=== PATIENT | male | born 1980 | race Caucasian/White ===

== ENCOUNTER 2020-01-11 11:14 | Outpatient (REF) | payer OTHER, SELFPAY ==
[2020-01-11 14:30] LABS: Hematocrit 41.2 % (42-52); Hemoglobin 13.7 g/dl (14.0-18.0); Mean Corpuscular HGB Conc 33.3 g/dl (31.0-36.0); Mean Corpuscular Hemoglobin 27.7 pg (27.0-33.0); Mean Corpuscular Volume 83.4 fL (80-98); Mean Platelet Volume 9.9 fL (9.4-12.4); Platelet Count 215 X10*3/uL (160-400); Red Blood Count 4.94 X10*6/uL (4.60-5.80); Red Cell Distribution Width 12.8 % (11.0-16.0); White Blood Count 6.3 X10*3/uL (4.8-10.8)
[2020-01-11 15:12] LABS: Alanine Aminotransferase 30 U/L (0-40); Albumin Level 4.4 g/dL (3.5-5.0); Alkaline Phosphatase 84 U/L (39-117); Anion Gap 13 (12-20); Aspartate Amino Transferase 20 U/L (5-37); Bilirubin Direct 0.2 mg/dL (0.0-0.5); Bilirubin Total 0.3 mg/dL (0.0-1.0); Blood Urea Nitrogen 14 mg/dL (9-16); Calcium 8.7 mg/dL (8.4-10.2); Carbon Dioxide 28 mmol/L (22-29); Chloride 103 mmol/L (96-108); Cholesterol 169 mg/dL; Estimated Glomerular Filt Rate > 60; Glucose Fasting 104 mg/dL (60-99); Glucose Urine UA NEG (NEG); HDL Cholesterol 33 mg/dL; LDL Cholesterol Calculated 86 mg/dl; Leukocyte Esterase Urine NEG (NEG); Nitrite Urine NEG (NEG); PH 5.5 (5.0-8.0); Potassium 4.6 mmol/l (3.3-5.1); Sodium 139 mmol/L (135-145); Specific Gravity - Urine >= 1.030 (1.005-1.025); Total Protein 7.3 g/dL (6.5-8.0); Triglycerides 251 mg/dL; Urine Blood NEG (NEG); Urine Ketones NEG (NEG); Urine Protein NEG (NEG-TRACE)
[2020-01-11 15:14] LABS: Appearance Urine CLEAR; Color Urine YELLOW
[2020-01-11 15:33] LABS: TSH reflex Free T4 0.52 mIU/mL (0.32-4.0)
== END 2020-01-11 11:15 | disposition home or self-care (01) ==
LOC: HO.10HDL 11:14
PROVIDERS: Visit Provider Hospitalist
DX: Z00.00 Encounter for general adult medical examination without abnormal findings (principal)
CPT/HCPCS: 36415; 80048; 80061; 80076; 81003; 84443; 85027

== ENCOUNTER 2022-12-06 08:40 | Outpatient (REF) | payer OTHER, SELFPAY ==
[2022-12-06 12:44] LABS: Alanine Aminotransferase 26 U/L (0-40); Albumin Level 4.5 g/dL (3.5-5.0); Alkaline Phosphatase 89 U/L (39-117); Anion Gap 13 (12-20); Aspartate Amino Transferase 17 U/L (5-37); Bilirubin Total 0.5 mg/dL (0.0-1.0); Blood Urea Nitrogen 10 mg/dL (9-16); Carbon Dioxide 27 mmol/L (22-29); Chloride 103 mmol/L (96-108); Cholesterol 196 mg/dL (<200); Estimated Glomerular Filt Rate > 60; Glucose Random 107 mg/dL (60-115); HDL Cholesterol 38 mg/dL (>40); LDL Cholesterol Calculated 127 mg/dL (<100); Potassium 4.3 mmol/L (3.3-5.1); Sodium 139 mmol/L (135-145); Total Protein 7.7 g/dL (6.5-8.0); Triglycerides 156 mg/dL (<150)
== END 2022-12-06 08:41 | disposition home or self-care (01) ==
LOC: HO.HHCL 08:40
PROVIDERS: Visit Provider Nurse Practitioner Family
DX: Z00.00 Encounter for general adult medical examination without abnormal findings (principal); N23 Unspecified renal colic
CPT/HCPCS: 36415; 80053; 80061; 87086

== ENCOUNTER 2022-12-23 10:14 | Outpatient (REF) | payer OTHER, SELFPAY ==
--- NOTE | ~2022-12-23 | XR_ITS ---
EXAMINATION: XR LUMBOSACRAL SPINE CLINICAL INFORMATION: Acute left-sided low back pain without sciatica. COMPARISON: None available. TECHNIQUE: Three views of the lumbosacral spine. FINDINGS: There is mild straightening of lumbar lordosis. The vertebral heights, alignment and disc heights are normal. No visible acute fracture, dislocation or subluxation seen. No lytic or sclerotic process seen. The paravertebral soft tissues are normal. XR/XR lumbar spine 2-3V IMPRESSION: Mild straightening of lumbar lordosis likely spasm. No visible acute fracture, dislocation or lytic process seen.
== END 2022-12-23 10:15 | disposition home or self-care (01) ==
LOC: HO.HHCX 10:14
PROVIDERS: Visit Provider Family Medicine
DX: M54.50 Low back pain, unspecified (principal)
CPT/HCPCS: 72100

== ENCOUNTER 2023-10-31 09:47 | Outpatient (REF) | payer OTHER, SELFPAY ==
[2023-10-31 12:41] LABS: Cholesterol 161 mg/dL (<200); HDL Cholesterol 31 mg/dL (>40); LDL Cholesterol Calculated 105 mg/dL (<100); Triglycerides 126 mg/dL (<150)
== END 2023-10-31 09:48 | disposition home or self-care (01) ==
LOC: HO.HHCL 09:47
PROVIDERS: Visit Provider Nurse Practitioner Family
DX: E78.2 Mixed hyperlipidemia (principal)
CPT/HCPCS: 36415; 80061

== ENCOUNTER 2024-05-28 09:16 | Outpatient (REF) | payer OTHER, SELFPAY ==
[2024-05-28 11:52] LABS: MANUAL DIFF FLAG NO
[2024-05-28 11:59] LABS: Basophils Percent Auto 0.4 % (0-2); Eosinophils Absolute Auto 0.1 X10*3/uL (0.0-0.4); Eosinophils Percent Auto 0.7 % (0-4); Hematocrit 42.3 % (42.0-52.0); Hemoglobin 14.2 g/dl (14.0-18.0); Imm Gran Abs Auto 0.02 X10*3/uL (0.00-0.03); Imm Gran Pct Auto 0.3 % (0.0-0.4); Lymphocytes Absolute Auto 2.3 X10*3/uL (1.2-4.9); Lymphocytes Percent Auto 33.4 % (20-40); Mean Corpuscular HGB Conc 33.6 g/dl (31.0-36.0); Mean Corpuscular Hemoglobin 28.4 pg (27.0-33.0); Mean Corpuscular Volume 84.6 fL (80.0-98.0); Mean Platelet Volume 9.9 fL (9.4-12.4); Monocytes Absolute Auto 0.4 X10*3/uL (0.1-1.2); Monocytes Percent Auto 5.8 % (2-11); Neutrophils Absolute Auto 4.1 x10*3/uL (2.0-8.3); Neutrophils Percent Auto 59.4 % (45-73); Platelet Count 241 X10*3/uL (160-400); Red Cell Distribution Width 12.9 % (11.0-16.0); White Blood Count 6.9 X10*3/uL (4.8-10.8)
[2024-05-28 12:30] LABS: Alanine Aminotransferase 42 U/L (0-40); Albumin Level 4.4 g/dL (3.5-5.0); Alkaline Phosphatase 81 U/L (39-117); Anion Gap 13 (12-20); Aspartate Amino Transferase 22 U/L (5-37); Bilirubin Total 0.4 mg/dL (0.0-1.0); Blood Urea Nitrogen 12 mg/dL (9-16); Calcium 9.5 mg/dL (8.4-10.2); Carbon Dioxide 25 mmol/L (22-29); Chloride 108 mmol/L (96-108); Estimated Glomerular Filt Rate > 60; Glucose Random 112 mg/dL (60-115); Potassium 4.5 mmol/L (3.3-5.1); Sodium 141 mmol/L (135-145); Total Protein 7.5 g/dL (6.5-8.0)
== END 2024-05-28 09:17 | disposition home or self-care (01) ==
LOC: HO.HHCL 09:16
PROVIDERS: Visit Provider Internal Medicine Geriatric Medicine
DX: K21.9 Gastro-esophageal reflux disease without esophagitis (principal); R68.82 Decreased libido
CPT/HCPCS: 36415; 80053; 84403; 85025

== ENCOUNTER 2024-07-04 16:19 | Outpatient (REF) | payer OTHER, SELFPAY ==
--- NOTE | ~2024-07-04 | US_ITS ---
EXAMINATION: US SCROTUM HISTORY: left scrotal mass. COMPARISON: There are no prior studies for comparison. FINDINGS: Real-time grayscale ultrasound imaging of the scrotum was performed. RIGHT TESTICLE: The right testis is surgically absent. LEFT TESTICLE: The left testis measures 4.6 x 2.4 x 2.8 cm and demonstrates normal homogeneous echotexture. There is a 3 mm hypoechoic focus within the testis which may represent a cyst, but is too small to accurately characterize. A 1 mm calcification is noted. The left testis demonstrates normal color Doppler flow. LEFT EPIDIDYMIS: Normal in size, shape, and vascularity. There is a 1.1 x 1.0 x 1.3 cm epididymal head cyst. VARICOCELE: None. HYDROCELE: No significant hydrocele is seen. OTHER COMMENTS: None. US/US scrotum IMPRESSION: 1. Status post right orchiectomy. 2. 3 mm hypoechoic focus in the left testis which may represent a cyst, but is too small to accurately characterize. Comparison with prior outside studies is recommended. If there are no prior outside studies available for comparison, follow-up is recommended. 3. 1.3 cm left epididymal head cyst. Electronically signed by: William Byers MD 07/05/2024 07:44 AM EDT
--- OUTSIDE RECORDS SUMMARY | 2024-07-04 16:47 | XMS_ITS | Encounter Summary ---
Author Organization [employer] Address [address] [place] [address] 7 [place] [address] Care Team Providers Care Manager Philosophy Name Role Phone Keyla Covington Primary Care Provider [phone] NameMarlon MD Primary Care Provider [phone] Encounter Details Date Type Department Care Team ([facility] st Contact Info) Description 01/07/2023 Abstract [facility] [address] [place], [place] [phone] Keyla Covington FNP [address] [place] [address] Social History Tobacco Use Types Packs/Day Years Used Date Smoking Tobacco: Every Day Cigarettes 1.5 25 Passive Smoke Exposure: Never Smokeless Tobacco: Never Alcohol Use Standard Drinks/Week Comments Never 0 (1 standard drink = 0.6 oz pur e alcohol) Depression Answer Date Recorded Patient Health Questionnaire-9 Score 0 12/03/2022 Housing Stability Answer Date Recorded What is your housing situation today? I have robinson mueller 12/21/[address] you li ve. Do you have problems with any of the following? None of the above 12/21/2022 Food Insecurity Answer Date Recorded Within the past 12 months, y ou worried that your food would run out before you got money to buy more: Never True 12/21/2022 Within the past 12 months,th e food you bought just didn't last and you didn't have enough money to get more: Never True Transportation Answer Date Recorded In the past 12 months, has l ack of transportation kept you from medical appts, meetings, work or from getting things needed for daily living? No 12/21/2022 Utilities Answer Date Recorded In the past 12 months, has t he electric, gas, oil or water company threatened to shut off services in your home? No 12/21/2022 Depression Answer Date Recorded Patient Health Questionnaire-2 Score 0 12/03/2022 Sex and Gender Information Value Date Recorded Sex Assigned at Male 01/04/2022 10:20 AM EDT Legal Sex Male 10:20 AM EDT Gender Identity Male 05/24/2022 3:22 PM EDT Sexual Orientation Straight 01/04/2022 10 :20 AM EDT documented as of this encounter Plan of Treatment Upcoming Encounters Date Type Department Care Team (Late st Contact Info) Description 07/27/2024 9:00 AM EDT Telemedicine [facility] [address] [place] [address] NameMarlon MD [address] [place] [phone] 09/10/2024 3:15 PM EDT Office Visit [facility] [address] [place] [address] NameMarlon MD [address] [place] [phone] documented as of this encounter Visit Diagnoses Not on filedocumented in this encounter Additional Health Concerns Assessment Noted Time PHQ-9 Depression Total Score: 0 12/04/19 2:34 PM EDT documented as of this encounter Care Teams Manager Philosophy Relationship Specialty Start Date End Date Keyla Covington FNP [address] [place] [phone] PCP - General Family Medicine 12/11/21 11/08/23 NameMarlon MD [address] [place] [phone] PCP - General Internal Medicine 11/09/23 documented as of this encounter
--- OUTSIDE RECORDS SUMMARY | 2024-07-04 16:47 | XMS_ITS | Clinical Summary ---
Author Organization [employer] Address [address] [place] [address] 7t [place] [address] Care Team Providers Care Tin Plater Name Role Phone Name, Marlon BINGHAM Primary Care Provider [phone] Allergies No known active allergies Medications methadone (Methadose) 40 MG dispersible tablet Take 1 tablet by mouth at bed time. Active naloxone (Narcan) 4 mg/0.1 mL nasal spray Administer 0.1 mL into affected nostril(s). 2 Active baclofen (Lioresal) 10 MG tablet Take 1 tablet (10 mg) by mouth if needed in the morning, at noon, and at bedtime for muscle spasms. 60 tablet 1 3 Active Diclofenac Sodium 1 % gel Apply 2 g topically if needed in the morning, at noon, in the evening, and at bedtime (pain). 150 g 3 3 Active lidocaine (Lidoderm) 5 % patch Apply 1 patch topically if needed each day for mild pain. Remove & discard patch within 12 hours or as directed by . 30 patch 1 3 Active albuterol 108 (90 Base) MCG/ACT inhalerIndicatio ns:Subacute cough Inhale 2 puffs every 6 (six) hours if needed for wheezing. 18 g 11 4 12/20/19 25 Active pantoprazole (Protonix) 40 MG EC tabletIndication s:Gastroesophage al reflux disease, unspecified whether esophagitis present Take 1 tablet (40 mg) by mouth before breakfast. Do not crush, chew, or split. 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 Opioid dependence 12/23/2022 12/23/2022 Encounters Date Type Department Care Team Description 06/04/2024 Telephone [facility] [address] [place] [phone] Marlon Noyola MD Results 05/21/2024 3:45 PM EDT Office Visit [facility] [address] [place] [phone] Marlon Noyola MD Scrotal mass (Primary Dx); Low libido; Gastroesophageal reflux disease, unspecified whether esophagitis present 05/21/2024 Travel 04/10/2024 Telephone [facility] [address] [place] [phone] Bren Melendez [place] PCP OUT 04/20 from Last 3 Months Immunizations Name Administration Dates Next Due Pfizer Covid-19 Vaccine 12+ 01/14/2023 Family History Medical History Relation Name Comments Diabetes type II Father Hypertension Father Kidney failure Father Colon cancer Father's Brother Hypertension Mother Relation Name Status Comments Father Father's Brother Alive Mother Social History Tobacco Use Types Packs/Day Years Used Date Smoking Tobacco: Every Day Cigarettes 1.5 25 Passive Smoke Exposure: Never Smokeless Tobacco: Never Tobacco Cessation:Ready to Q uit: Not Asked; Counseling Given: Not Answered Alcohol Use Standard Drinks/Week Comments Never 0 (1 standard drink = 0.6 oz pur e alcohol) Depression Answer Date Recorded Patient Health Questionnaire-9 Score 6 12/20/2023 Patient Health Questionnaire-9 Score 6 12/20/2023 Last PHQ-9: Questionnaire Data Not on file 1 Housing Stability Answer Date Recorded What is [...] Answer Date Recorded Patient Health Questionnaire-2 Score 2 12/20/2023 Sex and Gender Information Value Date Recorded Sex Assigned at Male 01/04/2022 10:20 AM EDT Legal Sex Male 10:20 AM EDT Gender Identity Male 05/24/2022 3:22 PM EDT Sexual Orientation Straight 01/04/2022 10 :20 AM EDT Last Filed Vital Signs Vital Sign Reading Time Taken Comments Blood Pressure 151/82 05/21/2024 3:53 PM EDT Pulse 73 05/21/2024 3:53 PM EDT Temperature 36.5 ??C (97.7 ??F) 05/21/2024 3:53 PM ED T Respiratory Rate 18 05/21/2024 3:53 PM EDT Oxygen Saturation 98% 05/21/2024 3:53 PM EDT Inhaled Oxygen Concentration - - Weight 92.5 kg (204 lb) 05/21/2024 3:53 PM EDT Height 175.3 cm (5' 9 ) 05/21/2024 3:53 PM EDT Body Mass Index 30.13 05/21/2024 3:53 PM EDT Plan of Treatment Upcoming Encounters Date Type Department Care Team (Late st Contact Info) Description 07/27/2024 9:00 AM EDT Telemedicine [facility] [address] [place] [address] Name, MD Marlon [address] [place] [phone] 09/10/2024 3:15 PM EDT Office Visit [facility] [address] [place] [phone] Name, MD Marlon [address] [place] [phone] Health Maintenance Due Date Last Done Comments CT Colonography 1979 Colonoscopy 1979 Colorectal Cancer Screening 1979 Dental X-Ray: Full Mouth 1979 FIT DNA/Cologuard 1979 FIT 1979 FOBT 1979 Sigmoidoscopy 1979 Alcohol/Substance Use Screening 1991 Family Planning (PISQ) 06/13/1994 DTaP/Tdap/Td Vaccines (1 - Tdap) 06/13/1998 Hepatitis B Vaccines (1 of 3 - 19+ 3-dose series) 06/13/1998 Pneumococcal Vaccine: Pediatrics (0 to 5 Years) and At-Risk Patients (6 to 49) Years) (1 of 2 - PCV) 06/13/1998 Dental Oral Exam 11/25/2022 05/24/2022 Dental Prophylaxis 11/25/2022 05/24/2022 COVID-19 Vaccine (2 - 2023-2 5 season) 2023 01/14/2023 Influenza Vaccine (#1) 2023 SDOH Screening 12/04/2023 12/03/2022 Dental X-Ray: Bitewings 02/03/2024 02/02/20 23, 05/24/2022 Depression Screening 12/19/2024 12/20/2023, 12/20/2023 Tobacco Screening 05/21/2025 05/21/2024 Lipid Panel 10/30/2028 10/31/2023, 12/06/2022 Zoster Vaccines (1 of 2) 06/13/2029 RSV Patients and Patients Aged 60 years or older (1 - 1-dose 75+ series) 06/13/2054 HIV Screening Completed 12/11/2021 Hepatitis C Screening Completed 12/11/2021 HIB Vaccines Aged Out No longer eligi ble based on patient's age to complete this topic HPV Vaccines Aged Out No longer eligi ble based on patient's age to complete this topic Hepatitis A Vaccines Aged Out No long er eligible based on patient's age to complete this topic IPV Vaccines Aged Out No longer eligi ble based on patient's age to complete this topic Meningococcal Vaccine Aged Out No [place] eligible based on patient's age to complete this topic RSV under 20 months Aged Out No longe r eligible based on patient's age to complete this topic Rotavirus Vaccines Aged Out No longer eligible based on patient's age to complete this topic Procedures Procedure Name Priority Date/Time Associated Diagnosis Comments TESTOSTERONE, TOTAL, MALES (ADULT), [place] Routine 05/28/2024 9:18 AM EDT Low libido COMPREHENSIVE METABOLIC PANEL Routine 05/28/2024 9:18 AM EDT Gastroesophageal reflux disease, unspecified whether esophagitis present CBC WITH AUTO DIFFERENTIAL Routine 05/28/2024 9:18 AM EDT Gastroesophageal reflux disease, unspecified whether esophagitis present LIPID PANEL, STANDARD Routine 10/31/2023 9:50 AM EDT Mixed hyperlipidemia BITEWING - SINGLE RADIOGRAPHIC IMAGE Routine 02/01/2023 11:30 AM EST PROPHYLAXIS - ADULT Routine 05/24/2022 3 :00 PM EDT PERIODIC ORAL EVALUATION - ESTABLISHED PATIENT Routine 05/24/2022 1:30 PM EDT ZZZ HISTORICAL HEPATITIS C AB W/REFL TO HCV RNA, QN, PCR Routine 12/11/2021 2:55 PM EDT HIV 1/2 ANTIGEN/ANTIBODY, FOURTH GENERATION W/RFL Routine 12/11/2021 2:55 PM EDT from Last 3 Months or Most Recently Relevant to Health Maintenance Results * CBC auto differential (05/28/2024 9:18 AM EDT) White Blood Count 6.9 4.8 - 10.8 X10*3/uL [facility] Red Blood Count 5.00 4.60 - 5.80 X10*6/uL [facility] Hemoglobin 14.2 14.0 - 18.0 g/dl [facility] Hematocrit 42.3 42.0 - 52.0 % [facility] Mean Corpuscular Volume 84.6 80.0 - 98.0 fL [facility] Mean Corpuscular Hemoglobin 28.4 27.0 - 33.0 pg [facility] Mean Corpuscular HGB Conc 33.6 31.0 - 36.0 g/dl [facility] Red Cell Distribution Width 12.9 11.0 - 16.0 % [facility] Platelet Count 241 160 - 400 X10*3/uL [facility] Mean Platelet Volume 9.9 9.4 - 12.4 fL [facility] Neutrophils Percent Auto 59.4 45 - 73 % [facility] Imm Gran Pct Auto 0.3 0.0 - 0.4 % [facility] Lymphocytes Percent Auto 33.4 20 - 40 % [facility] Monocytes Percent Auto 5.8 2 - 11 % [facility] Eosinophils Percent Auto 0.7 0 - 4 % [facility] Basophils Percent Auto 0.4 0 - 2 % [facility] NRBC Pct Auto 0.0 0.0 - 0.2 /100WBC [facility] Neutrophils Absolute Auto 4.1 2.0 - 8.3 x10*3/uL [facility] Imm Gran Abs Auto 0.02 0.00 - 0.03 X10*3/uL [facility] Lymphocytes Absolute Auto 2.3 1.2 - 4.9 X10*3/uL [facility] Monocytes Absolute Auto 0.4 0.1 - 1.2 X10*3/uL [facility] Eosinophils Absolute Auto 0.1 0.0 - 0.4 X10*3/uL [facility] Basophils Absolute Auto 0.0 0.0 - 0.2 X10*3/uL [facility] NRBC Abs Auto 0.000 0.0 - 0.012 X10*3/uL [facility] Blood Venous blood specimen / Unknown 05/28/2024 9:18 AM EDT 05/28/2024 11:49 AM EDT us Marlon Noyola MD LAB BLOOD ORDERABLES Final Resul t [facility] [address] [place] [address] [phone] * (ABNORMAL) Testosterone, Total, males (Adult), IA (05/28/2024 9:18 AM EDT) Pathologist [facility] Testosterone, Total 217(A) 250 - 1100 ng/dL [facility] Comment:For additional infor francisco, please refer tohttp://education.[employer]/faq/NwmlsPffsdpgmvmzkHBBVZLZMG185(This link is being provided for informational/educational purposes only.)This test was developed and its analytical performancecharacteristics have been determined by [employer] [place], [place]. It hasnot been cleared or approved by the U.S. Food and DrugAdministration. This assay has been validated pursuantto the CLIA regulations and is used for clinicalpurposes.THIS TEST WAS PERFORMED AT:[employer] [id number] [place] [address]IONLQIIKEYLA BLACK MD,PHD Blood Venous blood specimen / Unknown 05/28/2024 9:18 AM EDT 05/28/2024 11:49 AM EDT us Marlon Name LAB BLOOD ORDERABLES Final Resul t [facility] [address] [place] [phone] * (ABNORMAL) Comprehensive Metabolic Panel (05/28/2024 9:18 AM EDT) [facility] Sodium 141 135 - 145 mmol/L [facility] Potassium 4.5 3.3 - 5.1 mmol/L [facility] Chloride 108 96 - 108 mmol/L [facility] Carbon Dioxide 25 22 - 29 mmol/L [facility] Anion Gap 13 12 - 20 [facility] Urea Nitrogen (BUN) 12 9 - 16 mg/dL [facility] Creatinine, Serum 0.85 0.5 - 1.4 mg/dL [facility] Estimated Glomerular Filt Rate >60 [facility] Comment:Chronic Kidney Disea se: Estimated GFR < 60 mL/min/1.12g1Ifonry Kidney Disease: Estimated GFR < 15 mL/min/1.73m2 Glucose 112 60 - 115 mg/dL [facility] Calcium 9.5 8.4 - 10.2 mg/dL [facility] Bilirubin, Total 0.4 0.0 - 1.0 mg/dL [facility] Aspartate Amino Transferase 22 5 - 37 U/L [facility] Alanine Aminotransferase 42(H) 0 - 40 U/L [facility] Total Protein 7.5 6.5 - 8.0 g/dL [facility] Albumin Level 4.4 3.5 - 5.0 g/dL [facility] Alkaline Phosphatase 81 39 - 117 U/L [facility] Blood Venous blood specimen / Unknown 05/28/2024 9:18 AM EDT 05/28/2024 11:49 AM EDT us Marlon Name MD LAB BLOOD ORDERABLES Final Resul t [facility] [address] [place] [phone] * (ABNORMAL) Lipid Panel, Standard (10/31/2023 9:50 AM EDT) Triglycerides 126 <150 mg/dL [facility] Comment:Desirable Triglyceri de: less than 150 mg/dLBorderline High Triglyceride 150-199 mg/dLHigh Triglyceride: 200-499 mg/dLVery High Triglyceride: greater than or equal to 5OO mg/dL Cholesterol 161 <200 mg/dL [facility] Comment:Desirable Cholestero l: less than 200 mg/dLBorderline High Cholesterol: 200-239 mg/dLHigh Cholesterol: greater than 239 mg/dL LDL Cholesterol Calculated 105(H) <100 mg/dL [facility] Comment:Desirable LDL: less than 100 mg/dLNear Optimal/Above Optimal LDL: 110- 129 mg/dLBorderline High LDL: 130-159 mg/dLHigh LDL: 160-189 mg/dLVery High LDL: greater than or equal to 190 mg/dL HDL Cholesterol 31(L) >40 mg/dL [facility] Comment:Desirable HDL: great er than 40 mg/dL Note: This HDL assay may give artificially low results in patients with liver disease. Blood Venous blood specimen / Unknown 10/31/2023 9:50 AM EDT 10/31/2023 11:52 AM EDT Keyla Covington HEALTH ADMINISTRATION TEACHER LAB BLOOD ORDERABLES Final Resu lt [facility] [address] [place] [address] [phone] * HEPATITIS C AB W/REFL TO HCV RNA, QN, PCR (12/11/2021 2:55 PM EDT) HEPATITIS C ANTIBODY NON-REACTI VE NON-REACT [facility]US [facility] INDEX 0.08 <1.00 [facility] Comment: ?? HCV antibody was non-reactive. There is no laboratory ?? evidence of HCV infection. ?? In most cases, no further action is required. However, if recent HCV exposure is suspected, a test for HCV RNA (test code 07558) is suggested. ?? For additional information please refer to http://education.Ceram Hyd/faq/OJR37s1 (This link is being provided for informational/ educational purposes only.) ?? 12/11/2021 2:55 PM EDT Marlon Noyola MD HISTORICAL/NON ORDERABLE LABS Fi nal Result [facility] * HIV 1/2 ANTIGEN/ANTIBODY,FOURTH GENERATION W/RFL (12/11/2021 2:55 PM EDT) HIV-1/2 ANTIGEN AND ANTIBODIES, 4TH GENERATION W/ REFLEX NON-REACT LA[facility]ARUS NON-REACT [facility]US [facility] Comment: HIV-1 antigen and HIV-1/HIV-2 antibodies were not detected. There is no laboratory evidence of HIV infection. ?? PLEASE NOTE: This information has been disclosed to you from records whose confidentiality may be protected by state law. ??If your state requires such protection, then the state law prohibits you from making any further disclosure of the information without the specific written consent of the person to whom it pertains, or as otherwise permitted by law. A general authorization for the release of medical or other information is NOT sufficient for this purpose. ? For additional information please refer to http://education.Ceram Hyd/faq/IHL912 (This link is being provided for informational/ educational purposes only.) ? The performance of this assay has not been clinically validated in patients less than 2 years old. ?? 12/11/2021 2:55 PM EDT us Marlon Noyola MD LAB BLOOD ORDERABLES Final Resul t [facility] from Last 3 Months or Most Recently Relevant to Health Maintenance Insurance DENTAL - HSN PARTIAL (MEDICAID) Care Teams Tin Plater Relationship Specialty Start Date End Date Name, MD Marlon [address] [place] [phone] PCP - General Internal Medicine 11/09/23
--- OUTSIDE RECORDS SUMMARY | 2024-07-04 16:47 | XMS_ITS | Encounter Summary ---
Author Organization [employer] Address [address] [place] [address] 7 [place] [address] Care Team Providers Care Chest Painting And Sealing Supervisor Name Role Phone Keyla Covington Primary Care Provider [phone] Name, Marlon BINGHAM Primary Care Provider [phone] Reason for Visit * Reason Onset Date Comments Appointment 07/15/2022 Encounter Details Date Type Department Care Team (Late st Contact Info) Description 07/15/2022 Telephone [facility] [address], [place] [phone] Sidney Byrnes DDS [address], [place] [phone] Appointment Social History Tobacco Use Types Packs/Day Years Used Date Smoking Tobacco: Every Day Cigarettes 1.5 20 Passive Smoke Exposure: Never Smokeless Tobacco: Never Alcohol Use Standard Drinks/Week Comments Never 0 (1 standard drink = 0.6 oz pur e alcohol) Sex and Gender Information Value Date Recorded Sex Assigned at Male 01/04/2022 10:20 AM EDT Legal Sex Male 10:20 AM EDT Gender Identity Male 05/24/2022 3:22 PM EDT Sexual Orientation Straight 01/04/2022 10 :20 AM EDT COVID-19 Exposure Response Date Recorded In the last 10 days, have yo u been in contact with someone who was confirmed or suspected to have Coronavirus/COVID-19? No / Unsure 07/15/2022 7:48 AM EDT documented as of this encounter Miscellaneous Notes * Telephone Encounter - Tamara Iyer - 07/15/2022 9:37 AM EDT Pk [place]o 1980 Patient would like medication sent to [facility] at [address] [place] [phone] in [place] documented in this encounter Plan of Treatment Upcoming Encounters Date Type Department Care Team (Late st Contact Info) Description 07/27/2024 9:00 AM EDT Telemedicine [facility] MED[facility] [address] [place] [phone] Name, MD Marlon [address] [place] [phone] 09/10/2024 3:15 PM EDT Office Visit [facility] [address] [place] [phone] Name, MD Marlon [address] [place] [phone] documented as of this encounter Visit Diagnoses Not on filedocumented in this encounter Care Teams Chest Painting And Sealing Supervisor Relationship Specialty Start Date End Date Keyla Covington FNP [address] [place] [address] [phone] PCP - General Family Medicine 12/11/21 11/08/23 NameMarlon MD [address] [place] [address] [phone] PCP - General Internal Medicine 11/09/23 documented as of this encounter
--- OUTSIDE RECORDS SUMMARY | 2024-07-04 16:47 | XMS_ITS | Encounter Summary ---
Author Organization [employer] Address [address] [place] [phone] Care Team Providers Care Adjunct Trainer Name Role Phone JenPippa whitejun DELUNA Primary Care Provider [phone] Marlon Noyola MD Primary Care Provider [phone] Encounter Details Date Type Department Care Team (Latest Contact Info) Description 06/12/2020 Abstract [facility] CONVERSIONS Dental, Provider, DDS Social History Tobacco Use Types Packs/Day Years Used Date Smoking Tobacco: Never Assessed Sex and Gender Information Value Date Recorded Sex Assigned at Male 01/04/2022 10:20 AM EDT Legal Sex Male 10:20 AM EDT Gender Identity Male 05/24/2022 3:22 PM EDT Sexual Orientation Straight 01/04/2022 10 :20 AM EDT documented as of this encounter Plan of Treatment Upcoming Encounters Date Type Department Care Team ( st Contact Info) Description 07/27/2024 9:00 AM EDT Telemedicine [facility] MEDICINE [address] [place] [address] [phone] Marlon Noyola MD [address] [place] [phone] 09/10/2024 3:15 PM EDT Office Visit [facility] [address] [place] [address] [phone] Marlon Noyola MD [address] [place] [phone] documented as of this encounter Visit Diagnoses Not on filedocumented in this encounter Care Teams Adjunct Trainer Relationship Specialty Start Date End Date Keyla Covington FNP [address] [place] [address] PCP - General Family Medicine 12/11/21 11/08/23 Name, MD Marlon [address] [place] [address] PCP - General Internal Medicine 11/09/23 documented as of this encounter
== END 2024-07-04 16:20 | disposition home or self-care (01) ==
LOC: HO.US 16:19
PROVIDERS: PCP Internal Medicine Geriatric Medicine; Visit Provider Internal Medicine Geriatric Medicine
DX: N50.89 Other specified disorders of the male genital organs (principal)
CPT/HCPCS: 76870

== ENCOUNTER → 2024-07-04 16:26 | Outpatient (BNV) | payer OTHER, SELFPAY | PROVIDERS: PCP Internal Medicine Geriatric Medicine; Visit Provider Radiology Diagnostic Radiology | DX: N50.89 Other specified disorders of the male genital organs (principal) | CPT/HCPCS: 76870; 93976 ==

== ENCOUNTER 2024-08-09 07:41 | Outpatient (AMB) | payer OTHER, SELFPAY ==
--- OUTSIDE RECORDS SUMMARY | 2024-08-09 07:44 | XMS_ITS | Encounter Summary ---
Author Organization [facility] Address [address] [place] [address] 7 [place] [address] Care Team Providers Care Compensation Expert Name Role Phone Keyla Covington Primary Care Provider [phone] Marlon Noyola MD Primary Care Provider [phone] Reason for Visit * Reason Onset Date Comments Appointment 07/15/2022 Encounter Details Date Type Department Care Team (Late st Contact Info) Description 07/15/2022 Telephone [facility] ADULT DENTAL [address] [place], [place] [phone] Sidney Byrnes DDS [address] [place], [place] [phone] Appointment Social History Tobacco Use Types Packs/Day [...] 1980 Patient would like medication sent to [facility] at [address] [place] [address] in [place] documented in this encounter Plan of Treatment Upcoming Encounters Date Type Department Care Team (Late st Contact Info) Description 09/10/2024 3:15 PM EDT Office Visit [facility] MEDICINE [address] [place] [address] Marlon Noyola MD [address] [place] [address] documented as of this encounter Visit Diagnoses Not on filedocumented in this encounter Care Teams Compensation Expert Relationship Specialty Start Date End Date Keyla Covington FNP [address] [place] [address] PCP - General Family Medicine 12/11/21 11/08/23 Marlon Noyola MD [address] [place] [address] PCP - General Internal Medicine 11/09/23 documented as of this encounter
--- NOTE | 2024-08-09 08:19 | MHC.OFFVIS ---
Intake Visit Reasons: low testosterone Intake Note: New patient presents today for initial visit for low testosterone Urology Medication:None Blood Thinner:None Antibiotic Allergies:None Slip Bridge Operator Required: Yes Slip Bridge Operator Name: [id number] Information Interpreted: non-clinical & clinical Allergies No Known Allergies [No Known Allergies*] Allergy (Verified 08/09/24 08:21) Medication List - Last Reconciled 08/09/24 by Johnson Woodruff MD ibuprofen 800 mg PO TID PRN 30 days methadone 70 mg PO DAILY polyethylene glycol 3350 (Miralax) 17 grams PO BID 1 month HPI Comments Details: 08/09/24--History of Present Illness The patient is a 44-year-old male presenting with concerns regarding low testosterone levels. These were initially identified in May during routine blood work while he was on methadone therapy. He attributes the low testosterone levels to the methadone, indicating that he has no history of hypogonadism prior to the initiation of this treatment. The patient does not report any symptomatic complaints such as fatigue or diminished libido, which can be symptomatic of low testosterone. He experiences no difficulty with erections or any specific sexual activity concerns beyond a mild concern due to the low testosterone finding. There is a noted absence of family history concerning for prostate malignancy, which is relevant as we consider potential testosterone replacement therapy. Urinary Symptoms Review - No urinary symptoms were reported. - Absence of urinary incontinence. Results - Labs: Low testosterone level identified in May. Discussion Notes I discussed with the patient the implications of low testosterone levels, likely secondary to methadone therapy. We explored the potential management options, including the use of a medication called Cialis, which can help improve testosterone levels and assist with erectile function. The patient understood the relationship between testosterone and prostate health, especially considering the absence of prostate cancer in his family history. I communicated that Cialis might offer both benefits through a possible increase in testosterone and management of potential symptoms, though the therapy is primarily intended for erectile dysfunction. We agreed on a trial of daily Cialis 5 mg, with the understanding dosing might not be covered by insurance. We discussed the importance of follow-up testing in four months to reassess testosterone levels and review the symptoms. I explained the utilization of a GoodRx voucher to mitigate costs. Follow-up in preparation for reassessing labs was emphasized as part of ongoing management. Plan The patient will initiate therapy with Cialis 5 mg daily, anticipated to help improve testosterone levels secondary to methadone therapy, and monitor potential benefits for erectile function, though direct complaints were not made. We agreed to reassess testosterone as well as other hormone levels in four months. Given his lack of family history of prostate issues, it is understood that ongoing monitoring via PSA is a necessary precaution. A GoodRx voucher will be used for subsidy if insurance coverage is denied. We will plan for follow-up labs and a clinic visit ahead of the next evaluation to review his testosterone levels and check for any arising symptoms. Patient Instructions - Begin taking Cialis 5 mg daily to help testosterone levels. - Contact the pharmacy to run prescriptions through insurance and also ask about the GoodRx voucher for cost savings. - Attend follow-up appointments in four months for reassessment. - Complete blood work two weeks prior to the next appointment. - Call if you notice any issues with urination or sexual activity. - Monitor symptoms, report any sudden changes or new complaints. Patient was informed and verbally consented to the use of an ambient scribe for clinic note documentation during this visit. [facility] Surgical History H/O tympanostomy History of tonsillectomy History of inguinal hernia repair Family History Father Hypertension Mother Hypertension Paternal Grandmother Hypertension Social History Housing: House Patient Tobacco Use Status: Current everyday Tobacco user Cigarettes Per Day: 10 Current occupational status: employed Review of Systems Const All systems reviewed & are unremarkable except as noted in HPI and below Reports no additional complaints Eyes Reports no additional complaints ENT Reports no additional complaints Card Reports no additional complaints Resp Reports no additional complaints GI Reports no additional complaints Reports as per HPI Musc Reports no additional complaints Skin/Breast Reports system reviewed and no additional complaints, except as documented Neuro Reports no additional complaints Psych Reports no additional complaints Endo Reports no additional complaints Rufus/Lymph Reports no additional complaints Aller/Immun Reports no additional complaints Physical Exam Const General: healthy appearing, no acute distress and well developed Orientation/consciousness: patient oriented x3 HEENT Head: Yes normocephalic and Yes atraumatic Eyes Conjunctivae: conjunctivae normal Neck Neck: Yes normal visual inspection Chest Chest palpation & inspection: normal inspection of the chest Resp Effort & Inspection: normal respiratory effort GI Inspection: Yes normal to inspection Neuro General: patient oriented x3 Psych Appearance: grossly normal Affect: normal affect Results AMB Urinalysis, Automated UA Leukoctes 0 Casey/uL Last Edit by Crista Gibbstiz on 08/09/24 16:38 UA Nitrite Negative Last Edit by Crista Owens on 08/09/24 16:38 UA Urobilinogen 3.5 mg/dL Last Edit by Crista Owens on 08/09/24 16:38 UA Protein 1 mg/dL Last Edit by Crista Owens on 08/09/24 16:38 UA pH 6.0 Last Edit by Crista Owens on 08/09/24 16:38 UA Blood 0 Sam/uL Last Edit by Crista Owens on 08/09/24 16:38 UA Specific Klemme 1.020 Last Edit by Crista Owens on 08/09/24 16:38 UA Ketone Negative Last Edit by Crista Owens on 08/09/24 16:38 UA Bilirubin 0 mg/dL Last Edit by Crista Owens on 08/09/24 16:38 UA Glucose 0 mg/dL Last Edit by Crista Owens on 08/09/24 16:38 Results Reviewed Results Reviewed: Laboratory Last Values Urine pH (Auto) 6.0 08/09/24 16:32 Specific Klemme (Auto) 1.020 08/09/24 16:32 Urine Protein (Auto) 1 mg/dL 08/09/24 16:32 Glucose (UA)(Auto) 0 mg/dL 08/09/24 16:32 Urine Ketones (Auto) Negative 08/09/24 16:32 Urine Blood (Auto) 0 Sam/uL 08/09/24 16:32 Urine Nitrite (Auto) Negative 08/09/24 16:32 Urine Bilirubin (Auto) 0 mg/dL 08/09/24 16:32 Urine Urobilinogen (Auto) 3.5 mg/dL 08/09/24 16:32 Leukocyte Esterase (Auto) 0 Casey/uL 08/09/24 16:32 Assessment & Plan Assessment & Plan (1) Low testosterone: Code(s): R79.89 - Other specified abnormal findings of blood chemistry Category: Medical (2) Screening PSA (prostate specific antigen): Code(s): Z12.5 - Encounter for screening for malignant neoplasm of prostate Category: Medical (3) Methadone use: Code(s): F11.90 - Opioid use, unspecified, uncomplicated Category: Medical Plan Cialis 5 mg, testosterone and other lab work including PSA 2 weeks before follow-up have labs done in about 3-1/2 months Orders: Orders AMB Urinalysis Automated Today N52.9 - Male erectile dysfunction, unspecified Follicle Stimulating Hormone 3 Months R7. - Other specified abnormal findings of blood chemistry Glucose Fasting 3 Months R7. - Other specified abnormal findings of blood chemistry Testosterone, Free/Total 3 Months R7. - Other specified abnormal findings of blood chemistry Lutenizing Hormone 3 Months R7. - Other specified abnormal findings of blood chemistry PSA,Total (Free>4and<10) 3 Months R7. - Other specified abnormal findings of blood chemistry, Z12.5 - Encounter for screening for malignant neoplasm of prostate Patient Instructions: The patient had an opportunity to ask questions regarding treatment plan. The patient expressed understanding and agreement with the above treatment plan. The patient is aware they should contact our office by phone for worsening of their current condition or the appearance of new symptoms. Compliance is encouraged with any medications and followup testing that is ordered. It is a privilege to be allowed the opportunity to participate in the urologic care of your patient. If you have any questions or concerns regarding treatment for the above conditions please do not hesitate to contact me. The office telephone contact is [phone]. This note is constructed in part using voice recognition software. While every effort has been made to ensure accuracy label drier errors may have been included. Yours sincerely, Johnson they told me yesterday with the catheter thank you MD Kacy Coding Level of Care Code New Pt Level 4 (03599) Diagnoses Low testosterone R79.89 Screening PSA (prostate specific antigen) Z12.5 Methadone use F11.90
== END 2024-08-09 09:06 | disposition home or self-care (01) ==
LOC: HO.HUSH 07:42
PROVIDERS: PCP Hospitalist; Visit Provider Urology
DX: N52.9 Male erectile dysfunction, unspecified (principal)

== ENCOUNTER → 2024-08-09 07:41 | Outpatient (BNVA) | payer OTHER, SELFPAY | PROVIDERS: PCP Hospitalist; Visit Provider Urology | DX: N52.9 Male erectile dysfunction, unspecified (principal); R79.89 Other specified abnormal findings of blood chemistry; F11.90 Opioid use, unspecified, uncomplicated; Z12.5 Encounter for screening for malignant neoplasm of prostate | CPT/HCPCS: 81003; 99202 ==

== ENCOUNTER 2024-12-05 08:16 | Outpatient (REF) | payer OTHER, SELFPAY ==
--- OUTSIDE RECORDS SUMMARY | 2024-12-05 08:42 | XMS_ITS | Encounter Summary ---
Author Organization [facility] Address [address] [place] [address] Care Team Providers Care Spring Internship Name Role Phone Keyla Covington Primary Care Provider + Marlon Noyola MD Primary Care Provider [phone] Encounter Details Date Type Department Care Team (Latest Contact Info) Description 06/12/2020 Abstract [facility] CONVERSIONS Dental, Provider, DDS Social [...] Care Team ( st Contact Info) Description 01/28/2025 10:15 AM EST Office Visit [facility] MEDICINE [address] [place] [address] Marlon Noyola MD [address] [place] [address] documented as of this encounter Visit Diagnoses Not on filedocumented in this encounter Care Teams [employer] Intern[employer] Relationship Specialty Start Date End Date Keyla Covington FNP [address] [place] [address] PCP - General Family Medicine 12/11/21 11/08/23 Marlon Noyola MD [address] [place] [address] PCP - General Internal Medicine 11/09/23 documented as of this encounter
--- OUTSIDE RECORDS SUMMARY | 2024-12-05 08:42 | XMS_ITS | Encounter Summary ---
Author Organization [facility] Address [address] [place] [address] 7 [place] [address] Care Team Providers Care Aviation Support Equipment Repairer Name Role Phone Keyla Covington Primary Care Provider [phone] Marlon Noyola MD Primary Care Provider Reason for Visit * Reason Onset Date Comments Appointment 07/15/2022 Encounter Details Date Type Department Care Team (Late st Contact Info) Description 07/15/2022 Telephone [facility] ADULT DENTAL [address] [place], [place] [phone] Sidney Byrnes DDS [address] [place], [place] [phone] Appointment Social History Tobacco Use Types Packs/Day [...] 1980 Patient would like medication sent to [facility] at [address] [place] [address] [place] documented in this encounter Plan of Treatment Upcoming Encounters Date Type Department Care Team (Late st Contact Info) Description 01/28/2025 10:15 AM EST Office Visit [facility] MEDICINE [address] [place] [address] Name, MD Marlon [address] [place] [address] documented as of this encounter Visit Diagnoses Not on filedocumented in this encounter Care Teams Aviation Support Equipment Repairer Relationship Specialty Start Date End Date Keyla Covington FNP [address] [place] [address] PCP - General Family Medicine 12/11/21 11/08/23 Marlon Noyola MD [address] [place] [address] PCP - General Internal Medicine 11/09/23 documented as of this encounter
--- OUTSIDE RECORDS SUMMARY | 2024-12-05 08:42 | XMS_ITS | Encounter Summary ---
Author Organization [employer] Address [address] [place] [address] 7 [place] [address] Care Team Providers Care Prototype Engineer Manager Name Role Phone Keyla Covington Primary Care Provider +-[phone] NameMarlon MD Primary Care Provider [phone] Encounter Details Date Type Department Care Team ([facility] st Contact Info) Description 01/07/2023 Abstract [facility] MEDICINE [address] [place], [place] [phone] Keyla Covington FNP [address] [place] [address] Social History Tobacco Use Types Packs/Day Years [...] Description 01/28/2025 10:15 AM EST Office Visit [facility] MEDICINE [address] [place] [address] Marlon Noyola MD [address] [place] [address] documented as of this encounter Visit Diagnoses Not on filedocumented in this encounter Additional Health Concerns Assessment Noted Time PHQ-9 Depression Total Score: 0 12/04/19 23 2:34 PM EDT documented as of this encounter Care Teams Prototype Engineer Manager Relationship Specialty Start Date End Date Keyla Covington FNP [address] [place] [address] PCP - General Family Medicine 12/11/21 11/08/23 Marlon Noyola MD [address] [place] [address] PCP - General Internal Medicine 11/09/23 documented as of this encounter
--- OUTSIDE RECORDS SUMMARY | 2024-12-05 08:42 | XMS_ITS | Clinical Summary ---
Author Organization [employer] Address [address] [place] [address] 7 [place] [address] Care Team Providers Care Director Of Rehabilitation Name Role Phone Name, Marlon BINGHAM Primary Care Provider [phone] Allergies No known active allergies Medications methadone [...] Encounters Date Type Department Care Team Description 09/06/2024 Telephone [facility] MEDICINE [address] [place] [address] Name, MD Marlon Chart Prep from Last 3 Months Immunizations Immunization Administration Dates Next Due Pfizer Covid-19 Vaccine [...] 73 05/21/2024 3:53 PM EDT Temperature 36.5 C (97.7 F) 05/21/2024 3:53 PM EDT Respiratory Rate 18 05/21/2024 3:53 PM EDT [...] Description 01/28/2025 10:15 AM EST Office Visit [facility] MEDICINE [address] [place] [address] Name, MD Marlon [address] [place] [address] Health Maintenance Due Date Last Done Comments CT Colonography 1979 Colonoscopy 1979 Colorectal Cancer Screening 1979 Dental X-Ray: Full Mouth 1979 FIT DNA/Cologuard 1979 FIT 1979 FOBT 1979 Sigmoidoscopy 1979 Disability Screening 1979 Alcohol/Substance Use Screening 1991 Family Planning (PISQ) 06/13/1994 HPV Vaccines (1 - Male 3-dos e series) 06/13/1994 DTaP/Tdap/Td Vaccines (1 - Tdap) 06/13/1998 Hepatitis B Vaccines (1 of 3 - 19+ 3-dose series) 06/13/1998 Pneumococcal Vaccine: Pediatrics (0 to 5 Years) and At-Risk Patients (6 to 49) Years (1 of 2 - PCV) 06/13/1998 Dental Oral Exam 11/25/2022 05/24/2022 Dental Prophylaxis 11/25/2022 05/24/2022 SDOH Screening 12/04/2023 12/03/2022 Dental X-Ray: Bitewings 02/03/2024 02/02/20 23, 05/24/2022 COVID-19 Vaccine (2 - 2024-2 6 season) 2024 01/14/2023 Influenza Vaccine (#1) 2024 Depression Screening 12/19/2024 12/20/2023, 12/20/2023 Tobacco Screening [...] patient's age to complete this topic Meningococcal B Vaccine Aged Out No l onger eligible based on patient's age to complete [...] Procedure Name Priority Date/Time Associated Diagnosis Comments LIPID PANEL, STANDARD Routine 10/31/2023 9:50 AM [...] Recently Relevant to Health Maintenance Results * (ABNORMAL) Lipid Panel, Standard (10/31/2023 9:50 AM EDT) Triglycerides 126 <150 mg/dL [facility] Comment:Desirable Triglyceri de: less than 150 mg/dLBorderline High Triglyceride 150-199 mg/dLHigh Triglyceride: 200-499 mg/dLVery High Triglyceride: greater than or equal to 5OO mg/dL Cholesterol 161 <200 mg/dL [facility] Comment:Desirable Cholestero l: less than 200 mg/dLBorderline High Cholesterol: 200-239 mg/dLHigh Cholesterol: greater than 239 mg/dL LDL Cholesterol Calculated 105(H) <100 mg/dL [facility] Comment:Desirable LDL: less than 100 mg/dLNear Optimal/Above Optimal LDL: 110- 129 mg/dLBorderline High LDL: 130-159 mg/dLHigh LDL: 160-189 mg/dLVery High LDL: greater than or equal to 190 mg/dL HDL Cholesterol 31(L) >40 mg/dL [facility] Comment:Desirable HDL: great er than 40 mg/dL Note: This HDL assay may give artificially low results in patients with liver disease. Blood Venous blood specimen / Unknown 10/31/2023 9:50 AM EDT 10/31/2023 11:52 AM EDT Keyla Covington RADIOLOGIST PHYSICIAN LAB BLOOD ORDERABLES Final Resu lt [facility] [address], [place] [phone] * HEPATITIS C AB W/REFL TO HCV RNA, QN, PCR (12/11/2021 2:55 PM EDT) HEPATITIS C ANTIBODY NON-REACTI VE NON-REACT [facility]US CONVERTED LEGACY LABS INDEX 0.08 <1.00 [facility]GACY LABS Comment: HCV antibody was non-reactive. There is no laboratory evidence of HCV infection. In most cases, no further action is required. However, if recent HCV exposure is suspected, a test for HCV RNA (test code 80415) is suggested. For additional information please refer to http://Posibl..Fillm/faq/CIR28d8 (This link is being provided for informational/ educational purposes only.) 12/11/2021 2:55 PM EDT us Marlon oNyola MD HISTORICAL/NON ORDERABLE LABS Fi nal Result Performing Organization Address [facility] de Phone Number CONVERTED LEGACY LABS * HIV 1/2 ANTIGEN/ANTIBODY,FOURTH GENERATION W/RFL (12/11/2021 2:55 PM EDT) HIV-1/2 ANTIGEN AND ANTIBODIES, 4TH GENERATION W/ REFLEX NON-REACT LAZARUS NON-REACT [facility]US CON[facility]ED [facility]GACY LABS Comment: HIV-1 antigen and HIV-1/HIV-2 antibodies were not detected. There is no laboratory evidence of HIV infection. PLEASE NOTE: This information has been disclosed to you from records whose confidentiality may be protected by state law. If your state requires such protection, then the state law prohibits you from making any further disclosure of the information without the specific written consent of the person to whom it pertains, or as otherwise permitted by law. A general authorization for the release of medical or other information is NOT sufficient for this purpose. For additional information please refer to http://Posibl..Fillm/faq/PMR879 (This link is being provided for informational/ educational purposes only.) The performance of this assay has not been clinically validated in patients less than 2 years old. 12/11/2021 2:55 PM EDT us Marlon Noyola MD LAB BLOOD ORDERABLES Final Resul t Performing Organization Address [facility] de Phone Number CONVERTED LEGACY LABS from Last 3 Months or Most Recently Relevant to Health Maintenance Insurance [facility] - [facility]SN PARTIAL (MEDICAID) Care Teams Director Of Rehabilitation Relationship Specialty Start Date End Date Name, MD Marlon [address] [place] [address] PCP - General Internal Medicine 11/09/23
[2024-12-05 12:01] LABS: PSA,Total (Free>4and<10) 0.66 ng/mL (0.00-4.00)
[2024-12-06 02:54] LABS: Follicle Stimulating Hormone 16.1 mIU/mL (1.4-12.8)
[2024-12-09 16:08] LABS: Testosterone, Free 6.8 pg/mL (35.0-155.0)
== END 2024-12-05 08:17 | disposition home or self-care (01) ==
LOC: HO.10HDL 08:16
PROVIDERS: Visit Provider Urology
DX: Z12.5 Encounter for screening for malignant neoplasm of prostate (principal); R79.89 Other specified abnormal findings of blood chemistry
CPT/HCPCS: 36415; 82947; 83001; 83002; 84153; 84402; 84403

== ENCOUNTER 2024-12-10 08:43 | Outpatient (AMB) | payer OTHER, SELFPAY ==
--- NOTE | 2024-12-10 08:04 | A.OFFVIS_ITS ---
Intake Visit Reasons: 4m/labs Intake Note: patient presents today for 4 mo follow visit for low testosterone Labs done :12/05/24 Total [id number],Fr Testosterone 6.8, Total PSA 0.66 PVR:0 mls Urology Medication:Tadalafil Blood Thinner:None Antibiotic Allergies:None Software Clerk Required: Yes Software Clerk Name: Mau Petit Information Interpreted: non-clinical & clinical Accompanied by: Spouse Allergies No Known Allergies (No Known Allergies*) Allergy (Verified 12/10/24 08:45) Medication List - Last Reconciled 12/10/24 by Johnson Woodruff MD ibuprofen 800 mg PO TID PRN 30 days methadone 70 mg PO DAILY polyethylene glycol 3350 (Miralax) 17 grams PO BID 1 month tadalafil 5 mg PO DAILY 90 days testosterone 2 pumps topical DAILY 30 days HPI Comments Details: 12/10/2024--Pk presents for follow-up, low testosterone, likely secondary to methadone therapy. The patient was initially evaluated on 08/09/2024 and started on Cialis 5 mg daily. He presents for follow-up he had labs done total testosterone 60 free testosterone 6.8 both low levels. PSA 0.66 ng/mL. History of Present Illness The patient is a 44-year-old male presenting with low testosterone levels. The low testosterone is likely secondary to methadone therapy, which the patient has been undergoing. Initial evaluation occurred on August 09, 2024, when the patient was started on tadalafil 5 mg daily. He is currently taking methadone and pantoprazole, with no other pidi-kuh-udydwgk medications. Results - Total testosterone: 60 ng/dL (low) - Free testosterone: 6.8 pg/mL (low) - PSA: 0.66 ng/mL (normal) Plan 1. 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 - Initiate testosterone gel application daily. - Follow up with nurse practitioner for blood work re-evaluation in three months. 08/09/24--The patient is a 44-year-old male presenting with concerns regarding low testosterone levels. These were initially identified in May during routine blood work while he was on methadone therapy. He attributes the low testosterone levels to the methadone, indicating that he has no history of hypogonadism prior to the initiation of this treatment. The patient does not report any symptomatic complaints such as fatigue or diminished libido, which can be symptomatic of low testosterone. He experiences no difficulty with erections or any specific sexual activity concerns beyond a mild concern due to the low testosterone finding. There is a noted absence of family history concerning for prostate malignancy, which is relevant as we consider potential testosterone replacement therapy. Urinary Symptoms Review - No urinary symptoms were reported. - Absence of urinary incontinence. Results - Labs: Low testosterone level identified in May. Discussion Notes I discussed with the patient the implications of low testosterone levels, likely secondary to methadone therapy. We explored the potential management options, i ncluding the use of a medication called Cialis, which can help improve testosterone levels and assist with erectile function. The patient understood the relationship between testosterone and prostate health, especially considering the absence of prostate cancer in his family history. [facility] Surgical History H/O tympanostomy History of tonsillectomy History of inguinal hernia repair Family History Father Hypertension Mother Hypertension Paternal Grandmother Hypertension Social History Housing: House Patient Tobacco Use Status: Current everyday Tobacco user Cigarettes Per Day: 10 Current occupational status: employed Review of Systems Const All systems reviewed & are unremarkable except as noted in HPI and below Reports no additional complaints Eyes Reports no additional complaints ENT Reports no additional complaints Card Reports no additional complaints Resp Reports no additional complaints GI Reports no additional complaints Reports as per HPI Musc Reports no additional complaints Skin/Breast Reports system reviewed and no additional complaints, except as documented Neuro Reports no additional complaints Psych Reports no additional complaints Endo Reports no additional complaints Rufus/Lymph Reports no additional complaints Aller/Immun Reports no additional complaints Assessment & Plan Assessment & Plan (1) Low testosterone: Code(s): R79.89 - Other specified abnormal findings of blood chemistry Category: Medical (2) Screening PSA (prostate specific antigen): Code(s): Z12.5 - Encounter for screening for malignant neoplasm of prostate Category: Medical (3) Methadone use: Code(s): F11.90 - Opioid use, unspecified, uncomplicated Category: Medical Plan Plan 1. 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 - Initiate testosterone gel application daily. - Follow up with nurse practitioner for blood work re-evaluation in three months. Orders: Orders Hematocrit 2 Months F11.90 - Opioid use, unspecified, uncomplicated, R79.89 - Other specified abnormal findings of blood chemistry Testosterone, Free/Total 2 Months F11.90 - Opioid use, unspecified, uncomplicated, R79.89 - Other specified abnormal findings of blood chemistry Medications: New testosterone 2 pumps topical DAILY 75 grams 2RF 30 days Refilled 2 tadalafil USE COUPON ATTACHED NOT INSURANCE $39.19 [id number] [facility] [id number] Member [id number] 5 mg PO DAILY 90 tabs 2RF 90 days N52.9 - Male erectile dysfunction, unspecified Patient Instructions: The patient had an opportunity to ask questions regarding treatment plan. The patient expressed understanding and agreement with the above treatment plan. The patient is aware they should contact our office by phone for worsening of their current condition or the appearance of new symptoms. Compliance is encouraged with any medications and followup testing that is ordered. It is a privilege to be allowed the opportunity to participate in the urologic care of your patient. If you have any questions or concerns regarding treatment for the above conditions please do not hesitate to contact me. The office telephone contact is [phone]. This note is constructed in part using voice recognition software. While every effort has been made to ensure accuracy tanker driver errors may have been included. Yours sincerely, Johnson Woodruff MD Scribe Plan - Not visible on output: Patient was informed and verbally consented to the use of an ambient scribe for clinic note documentation during this visit. Coding Level of Care Code Tele Est Pt Level 4 (72062) Complex EM visit Add On G2211 Diagnoses Low testosterone R79.89 Screening PSA (prostate specific antigen) Z12.5 Methadone use F11.90
--- OUTSIDE RECORDS SUMMARY | 2024-12-10 09:26 | XMS_ITS | Encounter Summary ---
Author Organization [employer] Address [address] [place] [address] 7 [place] [address] Care Team Providers Care Real Estate Transaction Manager Name Role Phone Keyla Covington Primary Care Provider [phone] NameMarlon MD Primary Care Provider [phone] Encounter Details Date Type Department Care Team ([facility] st Contact Info) Description 01/07/2023 Abstract [facility] MEDICINE [address] [place], [place] [phone] Keyla Covington FNP [address] [place] [address] Social History Tobacco Use Types Packs/Day Years [...] Description 01/28/2025 10:15 AM EST Office Visit [facility] MEDICINE [address] [place] [phone] Marlon Noyola MD [address] [place] [phone] documented as of this encounter Visit Diagnoses Not on filedocumented in this encounter Additional Health Concerns Assessment Noted Time PHQ-9 Depression Total Score: 0 12/04/19 23 2:34 PM EDT documented as of this encounter Care Teams Real Estate Transaction Manager Relationship Specialty Start Date End Date Keyla Covington FNP [address] [place] [phone] PCP - General Family Medicine 12/11/21 11/08/23 Marlon Noyola MD [address] [place] [phone] PCP - General Internal Medicine 11/09/23 documented as of this encounter
--- OUTSIDE RECORDS SUMMARY | 2024-12-10 09:26 | XMS_ITS | Encounter Summary ---
Author Organization [employer] [facility] Address [address] [place] [address] 7 [place] [address] Care Team Providers Care Track Maintainer Name Role Phone Keyla Covington Primary Care Provider [phone] Marlon Noyola MD Primary Care Provider [phone] Reason for Visit * Reason Onset Date Comments Appointment 07/15/2022 Encounter Details Date Type Department Care Team (Late st Contact Info) Description 07/15/2022 Telephone [facility] ADULT DENTAL [address] [place], [place] [phone] Sidney Byrnes DDS [address] [place], [place] [phone] Appointment Social History Tobacco Use Types Packs/Day [...] 1980 Patient would like medication sent to [facility] at [address] [place] [address] [place] documented in this encounter Plan of Treatment Upcoming Encounters Date Type Department Care Team (Late st Contact Info) Description 01/28/2025 10:15 AM EST Office Visit [facility] MEDICINE [address] [place] [address] Name, MD Mralon [address] [place] [address] documented as of this encounter Visit Diagnoses Not on filedocumented in this encounter Care Teams Track Maintainer Relationship Specialty Start Date End Date Keyla Covington FNP [address] [place] [phone] PCP - General Family Medicine 12/11/21 11/08/23 Marlon Noyola MD [address] [place] [address] PCP - General Internal Medicine 11/09/23 documented as of this encounter
--- OUTSIDE RECORDS SUMMARY | 2024-12-10 09:26 | XMS_ITS | Clinical Summary ---
Author Organization [employer] Address [address] [place] [address] 7 [place] [address] Care Team Providers Care Manager Supply Chain Name Role Phone Name, Marlon BINGHAM Primary Care Provider [phone] Allergies No known active allergies Medications methadone [...] or split. 30 tablet 11 4 12/20/19 25 Active Active Problems Problem Noted Date Diagnosed Date Methadone use 12/23/2022 12/23/2022 Opioid dependence 12/23/2022 12/23/2022 Immunizations Immunization Administration Dates Next Due Pfizer [...] Description 01/28/2025 10:15 AM EST Office Visit [facility] MEDICINE [address] [place] [address] Name, MD Marlon [address] [place] [address] Health Maintenance Due Date Last Done Comments [...] 9:50 AM EDT) Triglycerides 126 <150 mg/dL [facility] Comment:Desirable Triglyceri de: less than 150 mg/dLBorderline High Triglyceride 150-199 mg/dLHigh Triglyceride: 200-499 mg/dLVery High Triglyceride: greater than or equal to 5OO mg/dL Cholesterol 161 <200 mg/dL [facility] Comment:Desirable Cholestero l: less than 200 mg/dLBorderline High Cholesterol: 200-239 mg/dLHigh Cholesterol: greater than 239 mg/dL LDL Cholesterol Calculated 105(H) <100 mg/dL [facility] Comment:Desirable LDL: less than 100 mg/dLNear Optimal/Above Optimal LDL: 110- 129 mg/dLBorderline High LDL: 130-159 mg/dLHigh LDL: 160-189 mg/dLVery High LDL: greater than or equal to 190 mg/dL HDL Cholesterol 31(L) >40 mg/dL [facility] Comment:Desirable HDL: great er than 40 mg/dL Note: This HDL assay may give artificially low results in patients with liver disease. Blood Venous blood specimen / Unknown 10/31/2023 9:50 AM EDT 10/31/2023 11:52 AM EDT us Keyla Nadya [facility] LAB BLOOD ORDERABLES Final Resu lt [facility] [address] [place] [address] [phone] * HEPATITIS C AB W/REFL TO [...] a test for HCV RNA (test code 41716) is suggested. For additional information please refer to http://education.HarQen/faq/SJN65f0 (This link is being provided for informational/ educational purposes only.) 12/11/2021 2:55 PM EDT Marlon Noyola MD HISTORICAL/NON ORDERABLE LABS Fi nal Result Performing Organization Address [facility]/ZIP Co de Phone Number CONVERTED LEGACY LABS * [...] purpose. For additional information please refer to http://DineroMail.HarQen/faq/ZTI014 (This link is being provided for informational/ educational purposes only.) The performance of this assay has not been clinically validated in patients less than 2 years old. 12/11/2021 2:55 PM EDT us Marlon Noyola MD LAB BLOOD ORDERABLES Final Resul t Performing Organization Address City/[facility]/ZIP Co de Phone Number CONVERTED LEGACY LABS from Last 3 Months or Most Recently Relevant to Health Maintenance Insurance DENTAL - HSN PARTIAL (MEDICAID) Care Teams Manager Supply Chain Relationship Specialty Start Date End Date Name, MD Marlon [address] [place] [phone] PCP - General Internal Medicine 11/09/23
--- OUTSIDE RECORDS SUMMARY | 2024-12-10 09:26 | XMS_ITS | Encounter Summary ---
Author Organization [employer] [facility] Address [address] [place] [address] Care Team Providers Care Electronics Commodity Manager Name Role Phone Keyla Covington Primary Care Provider [phone] Marlon Noyola MD Primary Care Provider [phone] Encounter Details Date Type Department Care Team (Latest Contact Info) Description 06/12/2020 Abstract [facility] CONVERSIONS Dental, Provider, DDS Social History Tobacco [...] Description 01/28/2025 10:15 AM EST Office Visit [facility] MEDICINE [address] [place] [address] Marlon Noyola MD [address] [place] [address] documented as of this encounter Visit Diagnoses Not on filedocumented in this encounter Care Teams Electronics Commodity Manager Relationship Specialty Start Date End Date Keyla Covington FNP [address] [place] [address] PCP - General Family Medicine 12/11/21 11/08/23 Marlon Noyola MD [address] [place] [address] PCP - General Internal Medicine 11/09/23 documented as of this encounter
== END 2024-12-10 09:14 | disposition home or self-care (01) ==
LOC: HO.HUSH 08:43
PROVIDERS: PCP Hospitalist; Visit Provider Urology
DX: R79.89 Other specified abnormal findings of blood chemistry (principal); Z12.5 Encounter for screening for malignant neoplasm of prostate; F11.90 Opioid use, unspecified, uncomplicated
CPT/HCPCS: 99213

== ENCOUNTER → 2024-12-10 08:43 | Outpatient (BNVA) | payer OTHER, SELFPAY | PROVIDERS: PCP Hospitalist; Visit Provider Urology | DX: R79.89 Other specified abnormal findings of blood chemistry (principal); Z12.5 Encounter for screening for malignant neoplasm of prostate; F11.20 Opioid dependence, uncomplicated | CPT/HCPCS: 51798; 81003; 99212 ==